=== PATIENT | female | born 1960 | race Caucasian/White ===

== ENCOUNTER 2019-03-04 17:19 | Inpatient (IN) | payer MEDICAID, OTHER ==
[~2019-03-04] VITALS: Ht 170.2 cm; Wt 108.8 kg
[2019-03-04] MEDS ORDERED: SODIUM CHLORIDE 0.9% 1,000ML IVBOLUS ONE (17:30)
[2019-03-04] MEDS ORDERED: SODIUM CHLORIDE FLUSH 10ML SYR IVF ONE (17:30)
[2019-03-04] MEDS ORDERED: PLEASE ENTER HEIGHT AND WEIGHT AND ALLERGIES MC SCH (18:00)
[2019-03-04 18:09] LABS: INTERNATIONAL NORMALIZED RATIO 1.49 (0.93-1.1); PROTHROMBIN TIME 15.9 Seconds (9.6-11.5)
[2019-03-04 18:12] LABS: ANION GAP 14 mmol/L (5-15); CALCIUM 8.1 mg/dL (8.5-10.1); CHLORIDE 104 mmol/L (98-107)
[2019-03-04 18:14] LABS: ALANINE AMINOTRANSFERASE 119 U/L (12-78); ALKALINE PHOSPHATASE 87 U/L (45-117); BILIRUBIN,TOTAL 1.6 mg/dL (0.2-1.0); CREATINE KINASE, TOTAL 45 U/L (26-192); SALICYLATE LEVEL < 1.7 mg/dL (2.8-20.0); T4 (THYROXINE) 4.9 mcg/dL (4.8-13.9); TOTAL PROTEIN 7.4 g/dL (6.4-8.2); TROPONIN I < 0.015 ng/mL (0.000-0.045)
[2019-03-04] MEDS: SODIUM CHLORIDE 0.9% 1,000 ML IV ONE ×2 (18:30→19:30)
--- NOTE | 2019-03-04 18:32 | NUR ---
Pt arrives via ems today from apartment complex s/p armaniign found wandering in complex and samarijudi called ems when she appeared to be confused and disoriented. Pt on arrival is only responisve to painful stimulus. Pt is a/ox1. Pt on arrival had two large bore pivs placed. Pts temp on arrival was 94.0 and warm fluids were started. Pt also has strong foul smell at this time. Pt has discolored feet and poor feet to hygiene. Pt does appear to not be taking care of herself. Pt also has purple bruising to nose. Pt is hypoxic on room air of 85%.
[2019-03-04 18:42] LABS: BASOPHILS # (AUTO) 0.03 x10^3/uL (0-0.1); BASOPHILS % (AUTO) 0 % (0-1); EOSINOPHILS # (AUTO) 0.02 x10^3/uL (0-0.4); EOSINOPHILS % (AUTO) 0 % (1-7); LYMPHOCYTES # (AUTO) 0.99 x10^3/uL (1-3.4); LYMPHOCYTES % (AUTO) 9 % (22-44); MD SCAN; MEAN CORPUSCULAR HGB CONC 31.5 g/dL (32.4-35.8); MEAN CORPUSCULAR VOLUME 92.1 fL (80-100); MEAN PLATELET VOLUME 9.9 fL (7.4-10.4); MONOCYTES # (AUTO) 0.27 x10^3/uL (0.2-0.8); MONOCYTES % (AUTO) 2 % (2-9); NEUTROPHILS # (AUTO) 9.87 x10^3/uL (1.8-6.8); NEUTROPHILS % (AUTO) 88 % (42-75); PLATELET COUNT 60 x10^3/uL (130-400); RED BLOOD COUNT 5.97 x10^6/uL (3.82-5.3); RED CELL DISTRIBUTION WIDTH 17.4 % (9.6-15.2)
--- NOTE | 2019-03-04 18:52 | NUR ---
PT to CT
--- NOTE | 2019-03-04 19:12 | NUR ---
pt back from ct.
--- NOTE | 2019-03-04 19:15 | NUR ---
RECEIVED REPORT FROM URBANO ACOSTA TO ASSUME CARE OF PT. AT APPROXIMATELY 1850. PT. WAS IN CT AT THAT TIME. PT. BACK TO ROOM NOW. ALL MONITORS REPLCAED. PT. ON JENIFER PAW WARMER GOWN. PT. HAS WARM FLUIDS INFUSING VIA HOTLINE. PT. RESTING ON GURNEY WITH SONOROUS REPIRATIONS. OXY MASK IN USE AT 8L WITH O2 SAT OF 98%. VS UPDATED. SITTER IN ROOM WITH PT. FOR SAFETY.
[2019-03-04] MEDS ORDERED: SODIUM CHLORIDE FLUSH 10ML SYR IVF PRN (19:30)
--- NOTE | 2019-03-04 19:32 | NUR ---
STRAIGHT CATH UA PERFORMED PER ORDER AND WALKED TO LAB. PT. REMAINS ON GURNEY WITH SONOROUS RESPIRATIONS. DID NOT WAKE FOR CAHT UA. FAMILY ARRIVED AT BS AT THIS TIME. URBANO RN AT BS OBTAINING INFO FROM FAMILY. THE REPORT "SHE IS A VERY PRIVATE PERSON AND SHE DOESN'T SHARE MUCH."
[2019-03-04] MEDS ORDERED: RIVA20TA PO (19:43)
[2019-03-04] MEDS ORDERED: TRAZ150T62 PO (19:43)
[2019-03-04] MEDS ORDERED: DULO30CA2 PO (19:43)
[2019-03-04 19:44] LABS: CULTURE INDICATED? YES; MICROSCOPIC INDICATED
[2019-03-04 19:58] LABS: AMPHETAMINE SCREEN, URINE Negative (Negative); BARBITURATE SCREEN, URINE Negative (Negative); BENZODIAZEPINE SCREEN, URINE Positive (Negative); CANNABINOID SCREEN, URINE Negative (Negative); COCAINE SCREEN, URINE Negative (Negative); METHADONE SCREEN, URINE Negative (Negative); OPIATE SCREEN, URINE Negative (Negative)
[2019-03-04] MEDS ORDERED: CEFTRIAXONE PMX 1GM/50ML 50 ML ONE (20:20)
[2019-03-04] MEDS ORDERED: CEFTRIAXONE PMX 1GM/50ML 50 ML IVPB ONE (20:30)
[2019-03-04] MEDS ORDERED: DIAZ10TA4 PO (20:43)
[2019-03-04] MEDS ORDERED: DIVA500T17 PO (20:43)
--- NOTE | 2019-03-04 21:31 | NUR ---
BRANT AT TO EVAL PT. FOR ADMISSION. SITTER REMAINS WITH PT. FAMILY REMAINS AT BS. PT. SLIGHTLY MORE ALERT NOW; WAKES, SITS UP, LOOKS AROUND, THEN GOES BACK TO SLEEP. NO DISTRESS NOTED.
[2019-03-04] MEDS ORDERED: LACTATED RINGERS 1,000 ML IV SCH (22:00)
[2019-03-04] MEDS ORDERED: PHARMACY MAY ADJ FOR RENAL FX MC PRN (22:00)
--- NOTE | 2019-03-04 22:09 | NUR ---
LAB AT FOR BLOOD DRAW. PT. CONDITION UNCHANGED. SITTER REMAINS IN ROOM ALONG WITH FAMILY. RIGHT AC 16G IV REMOVED NO LONGER FUNCTIONING; TIP INTACT. AWAITING CLEAN BED UPSTAIRS.
--- NOTE | 2019-03-04 22:26 | NUR ---
1ST ATTEMPT TO CALL REPORT TO FLOOR.
--- NOTE | 2019-03-04 22:31 | NUR ---
UNABLE TO GIVE REPORT.
--- NOTE | 2019-03-04 22:36 | NUR ---
LAB AT FOR FURTHER BLOOD DRAW ORDERS. FAMILY AND SITTTER AWARE OF NPO STATUS BUT MOUTH SWABS PROVIDED.
--- NOTE | 2019-03-04 22:38 | NUR ---
2ND ATTEMPT TO CALL REPORT TO FLOOR.
--- NOTE | 2019-03-04 22:59 | NUR ---
REPORT TO KARLA WALKER. FLOOR NOW READY FOR PT. TRANSPORT.
[2019-03-04 23:02] LABS: CREATINE KINASE, TOTAL 54 U/L (26-192); FREE T4 (FREE THYROXINE) 0.66 ng/dL (0.76-1.46); TROPONIN I 0.027 ng/mL (0.000-0.045)
[2019-03-04 23:35] VITALS: BP 137/87
[2019-03-05 00:59] VITALS: BP 139/90
[2019-03-05] MEDS ORDERED: CEFTRIAXONE PMX 1GM/50ML 50 ML IV ONE (02:30)
[2019-03-05 05:04] LABS: INTERNATIONAL NORMALIZED RATIO 1.51 (0.93-1.1); PROTHROMBIN TIME 16.1 Seconds (9.6-11.5)
[2019-03-05 05:07] LABS: MEAN CORPUSCULAR HEMOGLOBIN 28.8 pg (27.0-34.8); MEAN CORPUSCULAR HGB CONC 31.7 g/dL (32.4-35.8); MEAN CORPUSCULAR VOLUME 91.1 fL (80-100); MEAN PLATELET VOLUME 13.4 fL (7.4-10.4); PLATELET COUNT 82 x10^3/uL (130-400); RED BLOOD COUNT 5.58 x10^6/uL (3.82-5.3); RED CELL DISTRIBUTION WIDTH 17.5 % (9.6-15.2)
[2019-03-05 05:08] LABS: ALANINE AMINOTRANSFERASE 92 U/L (12-78); ALBUMIN 2.7 g/dL (3.4-5.0); ANION GAP 12 mmol/L (5-15); CALCIUM 8.3 mg/dL (8.5-10.1); CHLORIDE 109 mmol/L (98-107); CREATININE 1.39 mg/dL (0.55-1.02)
[2019-03-05 05:10] LABS: ALKALINE PHOSPHATASE 72 U/L (45-117); BILIRUBIN,TOTAL 1.2 mg/dL (0.2-1.0); TOTAL PROTEIN 6.7 g/dL (6.4-8.2)
[2019-03-05] MEDS: LEVOTHYROXINE 100 MCG INJ IVPush SCH ×2 (05:36→09:00)
[2019-03-05 05:59] LABS: BASOPHILS # (AUTO) 0.01 x10^3/uL (0-0.1); BASOPHILS % (AUTO) 0 % (0-1); EOSINOPHILS # (AUTO) 0.06 x10^3/uL (0-0.4); EOSINOPHILS % (AUTO) 1 % (1-7); LYMPHOCYTES # (AUTO) 1.09 x10^3/uL (1-3.4); LYMPHOCYTES % (AUTO) 8 % (22-44); MD SCAN; MONOCYTES # (AUTO) 1.13 x10^3/uL (0.2-0.8); MONOCYTES % (AUTO) 8 % (2-9); NEUTROPHILS # (AUTO) 11.46 x10^3/uL (1.8-6.8); NEUTROPHILS % (AUTO) 83 % (42-75)
[2019-03-05 06:58] VITALS: BP 163/113
[2019-03-05] MEDS: RIVAROXABAN 20 MG TABLET PO SCH (09:00)
[2019-03-05] MEDS: INSULIN LISPRO 100 UNITS/ML, PEN SQ-INSULIN SCH ×3 (10:53→21:00)
[2019-03-05] MEDS ORDERED: GADOTERATE 10 MMOL/20 ML SYR ONE (12:12)
[2019-03-05 13:22] VITALS: BP 157/94
[2019-03-05] MEDS ORDERED: DEXTROSE 50%, 50ML SYRINGE IVPush PRN ×2 (20:00)
[2019-03-05] MEDS ORDERED: GLUCAGON 1 MG IM PRN (20:00)
[2019-03-05] MEDS ORDERED: DEXTROSE 4 GM TAB.CHEW PO PRN (20:00)
[2019-03-05] MEDS: SODIUM CHLORIDE FLUSH 10ML SYR IVF SCH (20:56)
[2019-03-05] MEDS: CEFTRIAXONE PMX 2GM/50ML 50 ML IV SCH (20:56)
[2019-03-05 21:40] VITALS: BP 145/86
[2019-03-05] MEDS ORDERED: LACTATED RINGERS 1,000 ML IV SCH (22:00)
[2019-03-06 02:59] VITALS: BP 158/108
[2019-03-06] MEDS: hydrALAzine 20 MG/ML, 1ML IVPush PRN ×2 (03:37→20:11)
[2019-03-06 05:48] LABS: MEAN CORPUSCULAR HEMOGLOBIN 28.9 pg (27.0-34.8); MEAN CORPUSCULAR HGB CONC 31.2 g/dL (32.4-35.8); MEAN CORPUSCULAR VOLUME 92.5 fL (80-100); RED BLOOD COUNT 5.57 x10^6/uL (3.82-5.3); RED CELL DISTRIBUTION WIDTH 17.8 % (9.6-15.2)
[2019-03-06 05:52] LABS: CHLORIDE 113 mmol/L (98-107)
[2019-03-06 06:01] LABS: ALANINE AMINOTRANSFERASE 71 U/L (12-78); ALBUMIN 2.8 g/dL (3.4-5.0); ALKALINE PHOSPHATASE 72 U/L (45-117); ANION GAP 11 mmol/L (5-15); BILIRUBIN,TOTAL 0.9 mg/dL (0.2-1.0); CALCIUM 8.6 mg/dL (8.5-10.1); CREATININE 0.96 mg/dL (0.55-1.02); TOTAL PROTEIN 6.9 g/dL (6.4-8.2)
[2019-03-06 06:19] LABS: MEAN PLATELET VOLUME 13.2 fL (7.4-10.4); PLATELET COUNT 60 x10^3/uL (130-400)
[2019-03-06 06:20] LABS: BASOPHILS # (AUTO) 0.01 x10^3/uL (0-0.1); BASOPHILS % (AUTO) 0 % (0-1); EOSINOPHILS # (AUTO) 0.04 x10^3/uL (0-0.4); EOSINOPHILS % (AUTO) 0 % (1-7); LYMPHOCYTES # (AUTO) 0.79 x10^3/uL (1-3.4); LYMPHOCYTES % (AUTO) 5 % (22-44); MD SCAN; MONOCYTES # (AUTO) 1.18 x10^3/uL (0.2-0.8); MONOCYTES % (AUTO) 8 % (2-9); NEUTROPHILS # (AUTO) 13.01 x10^3/uL (1.8-6.8); NEUTROPHILS % (AUTO) 87 % (42-75)
[2019-03-06] MEDS: INSULIN LISPRO 100 UNITS/ML, PEN SQ-INSULIN SCH ×4 (07:00→19:13)
[2019-03-06 07:32] VITALS: BP 146/104
[2019-03-06] MEDS: CARVEDILOL 6.25 MG TABLET PO SCH ×2 (08:00→18:00)
[2019-03-06] MEDS: RIVAROXABAN 20 MG TABLET PO SCH (09:00)
[2019-03-06] MEDS: SODIUM CHLORIDE 0.9% 1,000 ML IV SCH (09:07)
[2019-03-06] MEDS: LEVOTHYROXINE 100 MCG INJ IVPush SCH (09:07)
[2019-03-06] MEDS: SODIUM CHLORIDE FLUSH 10ML SYR IVF SCH ×2 (09:08→21:00)
[2019-03-06 13:03] VITALS: BP 137/89
[2019-03-06 19:36] VITALS: BP 164/116
[2019-03-06] MEDS: CEFTRIAXONE PMX 2GM/50ML 50 ML IV SCH (20:11)
[2019-03-06 22:37] VITALS: BP 154/87
[2019-03-07 01:34] VITALS: BP 150/96
[2019-03-07] MEDS: SODIUM CHLORIDE 0.9% 1,000 ML IV SCH (02:15)
[2019-03-07] MEDS: CARVEDILOL 6.25 MG TABLET PO SCH ×2 (03:40→17:37)
[2019-03-07 09:00] LABS: ANION GAP 11 mmol/L (5-15); CALCIUM 8.3 mg/dL (8.5-10.1); CHLORIDE 117 mmol/L (98-107); CREATININE 0.87 mg/dL (0.55-1.02)
[2019-03-07 09:16] LABS: BASOPHILS % (AUTO) 0 % (0-1); EOSINOPHILS % (AUTO) 0 % (1-7); LYMPHOCYTES # (AUTO) 0.69 x10^3/uL (1-3.4); LYMPHOCYTES % (AUTO) 6 % (22-44); MD SCAN; MEAN CORPUSCULAR HEMOGLOBIN 29.6 pg (27.0-34.8); MEAN CORPUSCULAR HGB CONC 31.7 g/dL (32.4-35.8); MEAN CORPUSCULAR VOLUME 93.3 fL (80-100); MEAN PLATELET VOLUME 12.9 fL (7.4-10.4); MONOCYTES # (AUTO) 0.99 x10^3/uL (0.2-0.8); MONOCYTES % (AUTO) 8 % (2-9); NEUTROPHILS # (AUTO) 10.15 x10^3/uL (1.8-6.8); NEUTROPHILS % (AUTO) 86 % (42-75); PLATELET COUNT 73 x10^3/uL (130-400); RED BLOOD COUNT 5.34 x10^6/uL (3.82-5.3); RED CELL DISTRIBUTION WIDTH 17.8 % (9.6-15.2)
[2019-03-07] MEDS: SODIUM CHLORIDE FLUSH 10ML SYR IVF SCH ×2 (09:39→20:55)
[2019-03-07] MEDS: LEVOTHYROXINE 100 MCG INJ IVPush SCH (09:39)
[2019-03-07 09:42] VITALS: BP 142/99
[2019-03-07 14:02] VITALS: BP 136/97
[2019-03-07] MEDS: POTASSIUM CHLORIDE 20 MEQ in SODIUM CHLORIDE 0.45% 1,000 ML IV SCH (15:24)
[2019-03-07 19:36] VITALS: BP 137/85
[2019-03-07] MEDS: RIVAROXABAN 20 MG TABLET PO SCH (20:54)
[2019-03-07] MEDS: CEFTRIAXONE PMX 2GM/50ML 50 ML IV SCH (20:54)
[2019-03-07] MEDS: INSULIN LISPRO 100 UNITS/ML, PEN SQ-INSULIN SCH (20:55)
[2019-03-08 01:37] VITALS: BP 140/85
[2019-03-08 05:36] VITALS: BP 118/88
[2019-03-08] MEDS: CARVEDILOL 6.25 MG TABLET PO SCH ×2 (05:38→17:18)
[2019-03-08 06:58] VITALS: BP 117/81
[2019-03-08] MEDS: INSULIN LISPRO 100 UNITS/ML, PEN SQ-INSULIN SCH ×4 (07:00→20:58)
[2019-03-08] MEDS: SODIUM CHLORIDE FLUSH 10ML SYR IVF SCH ×2 (09:00→20:57)
[2019-03-08 09:13] LABS: ANION GAP 10 mmol/L (5-15); CALCIUM 7.9 mg/dL (8.5-10.1); CHLORIDE 106 mmol/L (98-107); CREATININE 0.78 mg/dL (0.55-1.02)
[2019-03-08 09:45] LABS: BASOPHILS # (AUTO) 0.06 x10^3/uL (0-0.1); BASOPHILS % (AUTO) 1 % (0-1); EOSINOPHILS % (AUTO) 1 % (1-7); LYMPHOCYTES # (AUTO) 1.18 x10^3/uL (1-3.4); LYMPHOCYTES % (AUTO) 10 % (22-44); MD SCAN; MEAN CORPUSCULAR HEMOGLOBIN 29.3 pg (27.0-34.8); MEAN CORPUSCULAR HGB CONC 31.7 g/dL (32.4-35.8); MEAN CORPUSCULAR VOLUME 92.5 fL (80-100); MEAN PLATELET VOLUME 12.8 fL (7.4-10.4); MONOCYTES # (AUTO) 1.09 x10^3/uL (0.2-0.8); MONOCYTES % (AUTO) 9 % (2-9); NEUTROPHILS # (AUTO) 9.25 x10^3/uL (1.8-6.8); NEUTROPHILS % (AUTO) 79 % (42-75); PLATELET COUNT 95 x10^3/uL (130-400); RED BLOOD COUNT 4.96 x10^6/uL (3.82-5.3); RED CELL DISTRIBUTION WIDTH 17.5 % (9.6-15.2)
[2019-03-08] MEDS: RIVAROXABAN 20 MG TABLET PO SCH (10:15)
[2019-03-08] MEDS: POTASSIUM CHLORIDE 20 MEQ in SODIUM CHLORIDE 0.45% 1,000 ML IV SCH (10:15)
[2019-03-08] MEDS: LEVOTHYROXINE 100 MCG INJ IVPush SCH (10:15)
[2019-03-08 13:53] VITALS: BP 117/82
[2019-03-08] MEDS ORDERED: ERGO500017 PO (15:13)
[2019-03-08] MEDS ORDERED: ARIP10TA15 PO (15:13)
[2019-03-08] MEDS ORDERED: LISI-420 PO (15:21)
[2019-03-08] MEDS ORDERED: AMOX875T PO (15:21)
[2019-03-08] MEDS ORDERED: BREX3TAB PO (15:21)
[2019-03-08] MEDS ORDERED: IBUP-1223 PO (15:21)
[2019-03-08] MEDS ORDERED: ATOR20TA86 PO (15:21)
[2019-03-08] MEDS ORDERED: METF500T17 PO (15:21)
[2019-03-08] MEDS: ERGOCALCIFEROL 50,000 UNIT CAPSULE PO SCH (17:17)
[2019-03-08 19:52] VITALS: BP 126/87
[2019-03-08] MEDS: CEFTRIAXONE PMX 2GM/50ML 50 ML IV SCH (20:56)
[2019-03-08] MEDS: ARIPIPRAZOLE 10 MG TABLET PO SCH (20:57)
[2019-03-08] MEDS: DULOXETINE 30 MG CAPSULE.DR PO SCH (20:57)
[2019-03-08] MEDS: DIVALPROEX 500 MG TAB.ER.24H PO SCH (20:57)
[2019-03-09 02:03] VITALS: BP 125/82
[2019-03-09 02:35] VITALS: BP 130/90
[2019-03-09] MEDS: CARVEDILOL 6.25 MG TABLET PO SCH ×2 (05:26→16:36)
[2019-03-09 07:36] VITALS: BP 141/82
[2019-03-09] MEDS: ATORVASTATIN 20 MG TABLET PO SCH (09:18)
[2019-03-09] MEDS: INSULIN LISPRO 100 UNITS/ML, PEN SQ-INSULIN SCH ×4 (09:18→20:37)
[2019-03-09] MEDS: SODIUM CHLORIDE FLUSH 10ML SYR IVF SCH ×2 (09:18→20:38)
[2019-03-09] MEDS: LISINOPRIL 20 MG TABLET PO SCH (09:19)
[2019-03-09] MEDS: LEVOTHYROXINE 100 MCG INJ IVPush SCH (09:19)
[2019-03-09] MEDS: RIVAROXABAN 20 MG TABLET PO SCH (09:19)
[2019-03-09] MEDS: POTASSIUM CHLORIDE 20 MEQ in SODIUM CHLORIDE 0.45% 1,000 ML IV SCH (12:18)
[2019-03-09 12:20] VITALS: BP 98/64
[2019-03-09 20:10] VITALS: BP 121/81
[2019-03-09] MEDS: DULOXETINE 30 MG CAPSULE.DR PO SCH (20:36)
[2019-03-09] MEDS: ARIPIPRAZOLE 10 MG TABLET PO SCH (20:37)
[2019-03-09] MEDS: DIVALPROEX 500 MG TAB.ER.24H PO SCH (20:37)
[2019-03-09] MEDS: CEFTRIAXONE PMX 2GM/50ML 50 ML IV SCH (20:37)
[2019-03-10 00:06] VITALS: BP 115/78
[2019-03-10] MEDS: CARVEDILOL 6.25 MG TABLET PO SCH ×2 (05:29→17:04)
[2019-03-10 06:48] VITALS: BP 116/83
[2019-03-10] MEDS: LISINOPRIL 20 MG TABLET PO SCH (09:14)
[2019-03-10] MEDS: ATORVASTATIN 20 MG TABLET PO SCH (09:14)
[2019-03-10] MEDS: INSULIN LISPRO 100 UNITS/ML, PEN SQ-INSULIN SCH ×4 (09:14→21:59)
[2019-03-10] MEDS: RIVAROXABAN 20 MG TABLET PO SCH (09:14)
[2019-03-10] MEDS: LEVOTHYROXINE 100 MCG INJ IVPush SCH (09:14)
[2019-03-10] MEDS: SODIUM CHLORIDE FLUSH 10ML SYR IVF SCH ×2 (09:15→21:00)
[2019-03-10 12:59] VITALS: BP 115/80
[2019-03-10] MEDS ORDERED: LORazepam 2 MG/ML, 1ML IVPush ONE (16:00)
[2019-03-10 19:17] VITALS: BP 121/80
[2019-03-10] MEDS: CEFTRIAXONE PMX 2GM/50ML 50 ML IV SCH (21:55)
[2019-03-10] MEDS: ARIPIPRAZOLE 10 MG TABLET PO SCH (22:14)
[2019-03-10] MEDS: DULOXETINE 30 MG CAPSULE.DR PO SCH (22:14)
[2019-03-10] MEDS: DIVALPROEX 500 MG TAB.ER.24H PO SCH (22:14)
[2019-03-11] VITALS (8 sets, daily range): BP systolic 111–159; BP diastolic 55–91
[2019-03-11] MEDS: CARVEDILOL 6.25 MG TABLET PO SCH ×2 (05:52→17:31)
[2019-03-11] MEDS: INSULIN LISPRO 100 UNITS/ML, PEN SQ-INSULIN SCH ×4 (08:04→19:55)
[2019-03-11] MEDS: ATORVASTATIN 20 MG TABLET PO SCH (08:06)
[2019-03-11] MEDS: LEVOTHYROXINE 100 MCG INJ IVPush SCH (08:06)
[2019-03-11] MEDS: LISINOPRIL 20 MG TABLET PO SCH (08:06)
[2019-03-11] MEDS: SODIUM CHLORIDE FLUSH 10ML SYR IVF SCH ×2 (08:06→19:48)
[2019-03-11] MEDS: RIVAROXABAN 20 MG TABLET PO SCH (08:06)
[2019-03-11] MEDS: DIVALPROEX 500 MG TAB.ER.24H PO SCH (19:48)
[2019-03-11] MEDS: DULOXETINE 30 MG CAPSULE.DR PO SCH (19:48)
[2019-03-11] MEDS: ARIPIPRAZOLE 10 MG TABLET PO SCH (19:48)
[2019-03-12 02:00] VITALS: BP 115/86
[2019-03-12 05:34] VITALS: BP 138/86
[2019-03-12] MEDS: CARVEDILOL 6.25 MG TABLET PO SCH ×2 (05:34→17:14)
[2019-03-12 06:48] LABS: BASOPHILS # (AUTO) 0.03 x10^3/uL (0-0.1); BASOPHILS % (AUTO) 0 % (0-1); EOSINOPHILS # (AUTO) 0.28 x10^3/uL (0-0.4); EOSINOPHILS % (AUTO) 3 % (1-7); LYMPHOCYTES # (AUTO) 1.38 x10^3/uL (1-3.4); LYMPHOCYTES % (AUTO) 16 % (22-44); MD NO; MEAN CORPUSCULAR HEMOGLOBIN 29.7 pg (27.0-34.8); MEAN CORPUSCULAR HGB CONC 32.1 g/dL (32.4-35.8); MEAN CORPUSCULAR VOLUME 92.5 fL (80-100); MEAN PLATELET VOLUME 10.6 fL (7.4-10.4); MONOCYTES # (AUTO) 1.01 x10^3/uL (0.2-0.8); MONOCYTES % (AUTO) 12 % (2-9); NEUTROPHILS # (AUTO) 6.02 x10^3/uL (1.8-6.8); NEUTROPHILS % (AUTO) 69 % (42-75); PLATELET COUNT 186 x10^3/uL (130-400); RED BLOOD COUNT 4.98 x10^6/uL (3.82-5.3); RED CELL DISTRIBUTION WIDTH 17.6 % (9.6-15.2)
[2019-03-12 06:57] LABS: ANION GAP 7 mmol/L (5-15); CALCIUM 8.6 mg/dL (8.5-10.1); CHLORIDE 106 mmol/L (98-107); CREATININE 0.64 mg/dL (0.55-1.02)
[2019-03-12 07:05] VITALS: BP 105/69
[2019-03-12] MEDS: INSULIN LISPRO 100 UNITS/ML, PEN SQ-INSULIN SCH ×4 (07:55→19:49)
[2019-03-12] MEDS: LEVOTHYROXINE 100 MCG INJ IVPush SCH (09:21)
[2019-03-12] MEDS: ATORVASTATIN 20 MG TABLET PO SCH (09:21)
[2019-03-12] MEDS: RIVAROXABAN 20 MG TABLET PO SCH (09:21)
[2019-03-12] MEDS: SODIUM CHLORIDE FLUSH 10ML SYR IVF SCH ×2 (09:21→19:53)
[2019-03-12] MEDS: LISINOPRIL 20 MG TABLET PO SCH (09:21)
[2019-03-12 12:55] VITALS: BP 102/69
[2019-03-12] MEDS: DIVALPROEX 500 MG TAB.ER.24H PO SCH (19:49)
[2019-03-12] MEDS: ARIPIPRAZOLE 10 MG TABLET PO SCH (19:49)
[2019-03-12] MEDS: DULOXETINE 30 MG CAPSULE.DR PO SCH (19:49)
[2019-03-12 20:58] VITALS: BP 126/81
[2019-03-13 01:39] VITALS: BP 121/77
[2019-03-13 05:12] VITALS: BP 119/84
[2019-03-13] MEDS: CARVEDILOL 6.25 MG TABLET PO SCH ×2 (05:16→17:02)
[2019-03-13 07:19] VITALS: BP 123/85
[2019-03-13] MEDS: SODIUM CHLORIDE FLUSH 10ML SYR IVF SCH ×2 (08:45→20:41)
[2019-03-13] MEDS: INSULIN LISPRO 100 UNITS/ML, PEN SQ-INSULIN SCH ×4 (08:45→20:40)
[2019-03-13] MEDS: LEVOTHYROXINE 100 MCG INJ IVPush SCH (08:45)
[2019-03-13] MEDS: ATORVASTATIN 20 MG TABLET PO SCH (08:49)
[2019-03-13] MEDS: RIVAROXABAN 20 MG TABLET PO SCH (08:49)
[2019-03-13] MEDS: LISINOPRIL 20 MG TABLET PO SCH (08:49)
[2019-03-13 13:11] VITALS: BP 111/79
[2019-03-13] MEDS: DIVALPROEX 500 MG TAB.ER.24H PO SCH (20:41)
[2019-03-13] MEDS: DULOXETINE 30 MG CAPSULE.DR PO SCH (20:41)
[2019-03-13] MEDS: ARIPIPRAZOLE 10 MG TABLET PO SCH (20:41)
[2019-03-13 21:17] VITALS: BP 143/77
[2019-03-14 00:55] VITALS: BP 128/76
[2019-03-14] MEDS: CARVEDILOL 6.25 MG TABLET PO SCH ×2 (05:38→17:11)
[2019-03-14 08:36] VITALS: BP 108/74
[2019-03-14] MEDS: LEVOTHYROXINE 100 MCG INJ IVPush SCH (10:22)
[2019-03-14] MEDS: SODIUM CHLORIDE FLUSH 10ML SYR IVF SCH ×2 (10:22→20:19)
[2019-03-14] MEDS: RIVAROXABAN 20 MG TABLET PO SCH (10:24)
[2019-03-14] MEDS: LISINOPRIL 20 MG TABLET PO SCH (10:24)
[2019-03-14] MEDS: ATORVASTATIN 20 MG TABLET PO SCH (10:24)
[2019-03-14] MEDS: INSULIN LISPRO 100 UNITS/ML, PEN SQ-INSULIN SCH ×4 (10:25→20:15)
[2019-03-14 14:16] VITALS: BP 127/78
[2019-03-14 20:10] VITALS: BP 110/74
[2019-03-14] MEDS: DIVALPROEX 500 MG TAB.ER.24H PO SCH (20:16)
[2019-03-14] MEDS: DULOXETINE 30 MG CAPSULE.DR PO SCH (20:16)
[2019-03-14] MEDS: ARIPIPRAZOLE 10 MG TABLET PO SCH (20:16)
[2019-03-15 00:07] VITALS: BP 121/82
[2019-03-15] MEDS: CARVEDILOL 6.25 MG TABLET PO SCH ×2 (06:01→17:36)
[2019-03-15 08:37] VITALS: BP 101/69
[2019-03-15] MEDS: RIVAROXABAN 20 MG TABLET PO SCH (09:32)
[2019-03-15] MEDS: ATORVASTATIN 20 MG TABLET PO SCH (09:32)
[2019-03-15] MEDS: INSULIN LISPRO 100 UNITS/ML, PEN SQ-INSULIN SCH ×4 (09:33→20:39)
[2019-03-15] MEDS: LISINOPRIL 20 MG TABLET PO SCH (09:33)
[2019-03-15] MEDS: SODIUM CHLORIDE FLUSH 10ML SYR IVF SCH ×2 (09:33→20:40)
[2019-03-15] MEDS: LEVOTHYROXINE 100 MCG INJ IVPush SCH (09:33)
[2019-03-15 12:47] VITALS: BP 127/80
[2019-03-15 14:28] LABS: BASOPHILS # (AUTO) 0.07 x10^3/uL (0-0.1); BASOPHILS % (AUTO) 1 % (0-1); EOSINOPHILS # (AUTO) 0.16 x10^3/uL (0-0.4); EOSINOPHILS % (AUTO) 2 % (1-7); LYMPHOCYTES # (AUTO) 2.02 x10^3/uL (1-3.4); LYMPHOCYTES % (AUTO) 27 % (22-44); MD NO; MEAN CORPUSCULAR HEMOGLOBIN 28.9 pg (27.0-34.8); MEAN CORPUSCULAR HGB CONC 31.7 g/dL (32.4-35.8); MEAN CORPUSCULAR VOLUME 91.2 fL (80-100); MEAN PLATELET VOLUME 10.7 fL (7.4-10.4); MONOCYTES % (AUTO) 7 % (2-9); NEUTROPHILS # (AUTO) 4.68 x10^3/uL (1.8-6.8); NEUTROPHILS % (AUTO) 63 % (42-75); PLATELET COUNT 226 x10^3/uL (130-400); RED BLOOD COUNT 4.67 x10^6/uL (3.82-5.3); RED CELL DISTRIBUTION WIDTH 17.3 % (9.6-15.2)
[2019-03-15 14:29] LABS: ALBUMIN 1.8 g/dL (3.4-5.0); ANION GAP 5 mmol/L (5-15); CALCIUM 8.5 mg/dL (8.5-10.1); CHLORIDE 104 mmol/L (98-107); CREATININE 0.82 mg/dL (0.55-1.02)
[2019-03-15] MEDS: ERGOCALCIFEROL 50,000 UNIT CAPSULE PO SCH (17:36)
[2019-03-15 19:54] VITALS: BP 128/83
[2019-03-15] MEDS: DULOXETINE 30 MG CAPSULE.DR PO SCH (20:37)
[2019-03-15] MEDS: ARIPIPRAZOLE 10 MG TABLET PO SCH (20:37)
[2019-03-15] MEDS: DIVALPROEX 500 MG TAB.ER.24H PO SCH (20:37)
[2019-03-16 02:03] VITALS: BP 131/84
[2019-03-16] MEDS: CARVEDILOL 6.25 MG TABLET PO SCH ×2 (06:00→17:07)
[2019-03-16] MEDS: INSULIN LISPRO 100 UNITS/ML, PEN SQ-INSULIN SCH ×4 (07:00→20:14)
[2019-03-16 08:01] LABS: BASOPHILS # (AUTO) 0.06 x10^3/uL (0-0.1); BASOPHILS % (AUTO) 1 % (0-1); EOSINOPHILS # (AUTO) 0.12 x10^3/uL (0-0.4); EOSINOPHILS % (AUTO) 2 % (1-7); LYMPHOCYTES # (AUTO) 1.91 x10^3/uL (1-3.4); LYMPHOCYTES % (AUTO) 28 % (22-44); MD NO; MEAN CORPUSCULAR HEMOGLOBIN 29.2 pg (27.0-34.8); MEAN CORPUSCULAR VOLUME 91.3 fL (80-100); MEAN PLATELET VOLUME 9.8 fL (7.4-10.4); MONOCYTES # (AUTO) 0.43 x10^3/uL (0.2-0.8); MONOCYTES % (AUTO) 6 % (2-9); NEUTROPHILS # (AUTO) 4.32 x10^3/uL (1.8-6.8); NEUTROPHILS % (AUTO) 63 % (42-75); PLATELET COUNT 236 x10^3/uL (130-400); RED BLOOD COUNT 4.54 x10^6/uL (3.82-5.3); RED CELL DISTRIBUTION WIDTH 17.6 % (9.6-15.2)
[2019-03-16 08:13] VITALS: BP 118/76
[2019-03-16 08:13] LABS: ALBUMIN 1.9 g/dL (3.4-5.0); ANION GAP 5 mmol/L (5-15); CALCIUM 8.2 mg/dL (8.5-10.1); CHLORIDE 104 mmol/L (98-107)
[2019-03-16] MEDS: LEVOTHYROXINE 100 MCG INJ IVPush SCH (08:23)
[2019-03-16] MEDS: RIVAROXABAN 20 MG TABLET PO SCH (08:24)
[2019-03-16] MEDS: ATORVASTATIN 20 MG TABLET PO SCH (08:24)
[2019-03-16] MEDS: LISINOPRIL 20 MG TABLET PO SCH (08:24)
[2019-03-16] MEDS ORDERED: MAGNESIUM SULFATE PMX 2GM/50ML 50 ML IV ONE (08:30)
[2019-03-16] MEDS: SODIUM CHLORIDE FLUSH 10ML SYR IVF SCH ×2 (09:23→21:00)
[2019-03-16 11:33] LABS: MICROSCOPIC AUTO
[2019-03-16 11:35] LABS: CULTURE INDICATED? YES
[2019-03-16 12:59] VITALS: BP 131/90
[2019-03-16] MEDS: LEVOFLOXACIN/PMX 500MG/100ML 100 ML IV SCH (17:07)
[2019-03-16 20:00] VITALS: BP 102/70
[2019-03-16] MEDS: DULOXETINE 30 MG CAPSULE.DR PO SCH (20:14)
[2019-03-16] MEDS: ARIPIPRAZOLE 10 MG TABLET PO SCH (20:15)
[2019-03-16] MEDS: DIVALPROEX 500 MG TAB.ER.24H PO SCH (20:15)
[2019-03-17 00:51] VITALS: BP 113/79
[2019-03-17] MEDS: CARVEDILOL 6.25 MG TABLET PO SCH ×2 (05:46→17:59)
[2019-03-17 07:17] VITALS: BP 142/87
[2019-03-17] MEDS: INSULIN LISPRO 100 UNITS/ML, PEN SQ-INSULIN SCH ×4 (08:18→20:46)
[2019-03-17] MEDS: ATORVASTATIN 20 MG TABLET PO SCH (10:50)
[2019-03-17] MEDS: SODIUM CHLORIDE FLUSH 10ML SYR IVF SCH ×2 (10:50→20:42)
[2019-03-17] MEDS: LISINOPRIL 20 MG TABLET PO SCH (10:50)
[2019-03-17] MEDS: RIVAROXABAN 20 MG TABLET PO SCH (10:50)
[2019-03-17] MEDS: LEVOTHYROXINE 100 MCG INJ IVPush SCH (10:50)
[2019-03-17 13:11] VITALS: BP 111/70
[2019-03-17] MEDS: LEVOFLOXACIN/PMX 500MG/100ML 100 ML IV SCH (17:59)
[2019-03-17 19:00] VITALS: BP 129/78
[2019-03-17] MEDS: ARIPIPRAZOLE 10 MG TABLET PO SCH (20:36)
[2019-03-17] MEDS: DULOXETINE 30 MG CAPSULE.DR PO SCH (20:37)
[2019-03-17] MEDS: DIVALPROEX 500 MG TAB.ER.24H PO SCH (20:37)
[2019-03-18 00:55] VITALS: BP 110/74
[2019-03-18] MEDS: CARVEDILOL 6.25 MG TABLET PO SCH ×2 (05:53→17:41)
[2019-03-18 06:48] VITALS: BP 112/71
[2019-03-18] MEDS: RIVAROXABAN 20 MG TABLET PO SCH (07:53)
[2019-03-18] MEDS: LEVOTHYROXINE 100 MCG INJ IVPush SCH (07:53)
[2019-03-18] MEDS: SODIUM CHLORIDE FLUSH 10ML SYR IVF SCH ×2 (07:53→20:52)
[2019-03-18] MEDS: ATORVASTATIN 20 MG TABLET PO SCH (07:53)
[2019-03-18] MEDS: LISINOPRIL 20 MG TABLET PO SCH (07:53)
[2019-03-18] MEDS: INSULIN LISPRO 100 UNITS/ML, PEN SQ-INSULIN SCH ×4 (07:54→21:12)
[2019-03-18 07:55] VITALS: BP 124/69
[2019-03-18] MEDS ORDERED: LEVO100T PO (09:15)
[2019-03-18 12:43] VITALS: BP 118/75
[2019-03-18 18:49] VITALS: BP 137/84
[2019-03-18] MEDS: ARIPIPRAZOLE 10 MG TABLET PO SCH (20:40)
[2019-03-18] MEDS: DULOXETINE 30 MG CAPSULE.DR PO SCH (20:40)
[2019-03-18] MEDS: DIVALPROEX 500 MG TAB.ER.24H PO SCH (20:41)
[2019-03-18] MEDS: LEVOFLOXACIN/PMX 500MG/100ML 100 ML IV SCH (20:41)
[2019-03-19 00:19] VITALS: BP 117/81
[2019-03-19] MEDS: CARVEDILOL 6.25 MG TABLET PO SCH ×2 (06:03→18:21)
[2019-03-19] MEDS: LISINOPRIL 20 MG TABLET PO SCH (07:37)
[2019-03-19] MEDS: RIVAROXABAN 20 MG TABLET PO SCH (07:38)
[2019-03-19] MEDS: ATORVASTATIN 20 MG TABLET PO SCH (07:38)
[2019-03-19] MEDS: LEVOTHYROXINE 100 MCG INJ IVPush SCH (07:38)
[2019-03-19] MEDS: SODIUM CHLORIDE FLUSH 10ML SYR IVF SCH ×2 (07:43→20:27)
[2019-03-19] MEDS: INSULIN LISPRO 100 UNITS/ML, PEN SQ-INSULIN SCH ×4 (07:43→20:25)
[2019-03-19 08:05] VITALS: BP 124/87
[2019-03-19] MEDS: AMOXICILLIN 500 MG CAPSULE PO SCH ×3 (09:48→20:26)
[2019-03-19] MEDS: FLUCONAZOLE 200 MG TABLET PO SCH (09:49)
[2019-03-19 14:26] VITALS: BP 115/77
[2019-03-19 18:48] VITALS: BP 124/79
[2019-03-19] MEDS: ARIPIPRAZOLE 10 MG TABLET PO SCH (20:26)
[2019-03-19] MEDS: DULOXETINE 30 MG CAPSULE.DR PO SCH (20:26)
[2019-03-19] MEDS: DIVALPROEX 500 MG TAB.ER.24H PO SCH (20:26)
[2019-03-20 01:13] VITALS: BP 113/78
[2019-03-20 06:06] VITALS: BP 133/88
[2019-03-20] MEDS: CARVEDILOL 6.25 MG TABLET PO SCH ×2 (06:06→16:56)
[2019-03-20] MEDS: INSULIN LISPRO 100 UNITS/ML, PEN SQ-INSULIN SCH ×4 (07:48→20:03)
[2019-03-20] MEDS: SODIUM CHLORIDE FLUSH 10ML SYR IVF SCH ×2 (07:48→20:05)
[2019-03-20] MEDS: LEVOTHYROXINE 100 MCG INJ IVPush SCH (07:49)
[2019-03-20] MEDS: AMOXICILLIN 500 MG CAPSULE PO SCH ×3 (07:49→20:02)
[2019-03-20] MEDS: RIVAROXABAN 20 MG TABLET PO SCH (07:49)
[2019-03-20] MEDS: FLUCONAZOLE 200 MG TABLET PO SCH (07:49)
[2019-03-20] MEDS: LISINOPRIL 20 MG TABLET PO SCH (07:49)
[2019-03-20] MEDS: ATORVASTATIN 20 MG TABLET PO SCH (07:50)
[2019-03-20 16:30] VITALS: BP 130/84
[2019-03-20 19:37] VITALS: BP 128/82
[2019-03-20] MEDS: DULOXETINE 30 MG CAPSULE.DR PO SCH (20:02)
[2019-03-20] MEDS: ARIPIPRAZOLE 10 MG TABLET PO SCH (20:02)
[2019-03-20] MEDS: DIVALPROEX 500 MG TAB.ER.24H PO SCH (20:02)
[2019-03-21 00:48] VITALS: BP 143/79
[2019-03-21] MEDS: CARVEDILOL 6.25 MG TABLET PO SCH ×2 (05:22→16:36)
[2019-03-21 08:13] VITALS: BP 123/80
[2019-03-21] MEDS: INSULIN LISPRO 100 UNITS/ML, PEN SQ-INSULIN SCH ×4 (08:13→20:13)
[2019-03-21] MEDS: SODIUM CHLORIDE FLUSH 10ML SYR IVF SCH ×2 (08:13→20:12)
[2019-03-21] MEDS: AMOXICILLIN 500 MG CAPSULE PO SCH ×3 (08:18→20:13)
[2019-03-21] MEDS: FLUCONAZOLE 200 MG TABLET PO SCH (08:18)
[2019-03-21] MEDS: ATORVASTATIN 20 MG TABLET PO SCH (08:18)
[2019-03-21] MEDS: LEVOTHYROXINE 100 MCG INJ IVPush SCH ×2 (08:18→13:53)
[2019-03-21] MEDS: RIVAROXABAN 20 MG TABLET PO SCH (08:18)
[2019-03-21] MEDS: LISINOPRIL 20 MG TABLET PO SCH (08:19)
[2019-03-21 13:59] VITALS: BP 125/79
[2019-03-21 16:34] VITALS: BP 125/83
[2019-03-21] MEDS: DIVALPROEX 500 MG TAB.ER.24H PO SCH (20:13)
[2019-03-21] MEDS: ARIPIPRAZOLE 10 MG TABLET PO SCH (20:13)
[2019-03-21] MEDS: DULOXETINE 30 MG CAPSULE.DR PO SCH (20:13)
[2019-03-21 20:36] VITALS: BP 121/70
[2019-03-22 00:45] VITALS: BP 111/76
[2019-03-22] MEDS: CARVEDILOL 6.25 MG TABLET PO SCH ×2 (05:28→17:04)
[2019-03-22 07:32] VITALS: BP 113/76
[2019-03-22] MEDS: RIVAROXABAN 20 MG TABLET PO SCH (07:40)
[2019-03-22] MEDS: LEVOTHYROXINE 100 MCG INJ IVPush SCH (07:40)
[2019-03-22] MEDS: LISINOPRIL 20 MG TABLET PO SCH (07:40)
[2019-03-22] MEDS: INSULIN LISPRO 100 UNITS/ML, PEN SQ-INSULIN SCH ×4 (07:41→20:15)
[2019-03-22] MEDS: ATORVASTATIN 20 MG TABLET PO SCH (07:42)
[2019-03-22] MEDS: SODIUM CHLORIDE FLUSH 10ML SYR IVF SCH ×2 (07:43→20:30)
[2019-03-22] MEDS: FLUCONAZOLE 200 MG TABLET PO SCH (07:44)
[2019-03-22 12:28] VITALS: BP 119/82
[2019-03-22] MEDS: ERGOCALCIFEROL 50,000 UNIT CAPSULE PO SCH (17:04)
[2019-03-22 19:29] VITALS: BP 155/83
[2019-03-22] MEDS: DIVALPROEX 500 MG TAB.ER.24H PO SCH (20:29)
[2019-03-22] MEDS: ARIPIPRAZOLE 10 MG TABLET PO SCH (20:29)
[2019-03-22] MEDS: DULOXETINE 30 MG CAPSULE.DR PO SCH (20:30)
[2019-03-23 01:35] VITALS: BP 119/78
[2019-03-23 06:14] VITALS: BP 132/85
[2019-03-23] MEDS: CARVEDILOL 6.25 MG TABLET PO SCH ×2 (06:15→16:46)
[2019-03-23 07:35] VITALS: BP 127/81
[2019-03-23] MEDS: ATORVASTATIN 20 MG TABLET PO SCH (07:46)
[2019-03-23] MEDS: RIVAROXABAN 20 MG TABLET PO SCH (07:46)
[2019-03-23] MEDS: LISINOPRIL 20 MG TABLET PO SCH (07:47)
[2019-03-23] MEDS: SODIUM CHLORIDE FLUSH 10ML SYR IVF SCH ×2 (07:47→20:43)
[2019-03-23] MEDS: FLUCONAZOLE 200 MG TABLET PO SCH (07:47)
[2019-03-23] MEDS: LEVOTHYROXINE 100 MCG INJ IVPush SCH (07:52)
[2019-03-23] MEDS: INSULIN LISPRO 100 UNITS/ML, PEN SQ-INSULIN SCH ×4 (07:52→20:43)
[2019-03-23 13:14] VITALS: BP 143/84
[2019-03-23] MEDS: metFORMIN 850 MG TABLET PO SCH (16:46)
[2019-03-23 19:29] VITALS: BP 155/88
[2019-03-23] MEDS: DULOXETINE 30 MG CAPSULE.DR PO SCH (20:42)
[2019-03-23] MEDS: ARIPIPRAZOLE 10 MG TABLET PO SCH (20:42)
[2019-03-23] MEDS: DIVALPROEX 500 MG TAB.ER.24H PO SCH (20:42)
[2019-03-24 00:17] VITALS: BP 109/71
[2019-03-24] MEDS: CARVEDILOL 6.25 MG TABLET PO SCH ×2 (05:22→16:42)
[2019-03-24 05:23] VITALS: BP 161/87
[2019-03-24 06:05] LABS: CREATININE 0.78 mg/dL (0.55-1.02)
[2019-03-24] MEDS: metFORMIN 850 MG TABLET PO SCH ×2 (07:42→16:42)
[2019-03-24] MEDS: LISINOPRIL 20 MG TABLET PO SCH (07:42)
[2019-03-24] MEDS: RIVAROXABAN 20 MG TABLET PO SCH (07:42)
[2019-03-24] MEDS: LEVOTHYROXINE 100 MCG INJ IVPush SCH (07:42)
[2019-03-24] MEDS: ATORVASTATIN 20 MG TABLET PO SCH (07:42)
[2019-03-24 07:43] VITALS: BP 134/82
[2019-03-24] MEDS: SODIUM CHLORIDE FLUSH 10ML SYR IVF SCH (07:43)
[2019-03-24] MEDS: INSULIN LISPRO 100 UNITS/ML, PEN SQ-INSULIN SCH ×4 (08:04→19:57)
[2019-03-24] MEDS: LEVOTHYROXINE 125 MCG TABLET PO SCH (11:31)
[2019-03-24 14:19] VITALS: BP 128/82
[2019-03-24] MEDS: DULOXETINE 30 MG CAPSULE.DR PO SCH (19:56)
[2019-03-24] MEDS: ARIPIPRAZOLE 10 MG TABLET PO SCH (19:57)
[2019-03-24] MEDS: DIVALPROEX 500 MG TAB.ER.24H PO SCH (19:57)
[2019-03-24 20:05] VITALS: BP 117/81
[2019-03-25 02:46] VITALS: BP 126/81
[2019-03-25 06:06] VITALS: BP 142/87
[2019-03-25] MEDS: CARVEDILOL 6.25 MG TABLET PO SCH ×2 (06:06→18:30)
[2019-03-25] MEDS: LEVOTHYROXINE 125 MCG TABLET PO SCH (06:06)
[2019-03-25] MEDS: INSULIN LISPRO 100 UNITS/ML, PEN SQ-INSULIN SCH ×4 (07:41→20:30)
[2019-03-25 08:29] VITALS: BP 171/86
[2019-03-25] MEDS: LISINOPRIL 20 MG TABLET PO SCH (09:48)
[2019-03-25] MEDS: metFORMIN 850 MG TABLET PO SCH ×2 (09:48→17:19)
[2019-03-25] MEDS: ATORVASTATIN 20 MG TABLET PO SCH (09:48)
[2019-03-25] MEDS: RIVAROXABAN 20 MG TABLET PO SCH (09:48)
[2019-03-25 14:19] VITALS: BP 155/85
[2019-03-25 18:54] VITALS: BP 163/102
[2019-03-25 19:49] VITALS: BP 154/78
[2019-03-25] MEDS: DIVALPROEX 500 MG TAB.ER.24H PO SCH (20:30)
[2019-03-25] MEDS: ARIPIPRAZOLE 10 MG TABLET PO SCH (20:30)
[2019-03-25] MEDS: DULOXETINE 30 MG CAPSULE.DR PO SCH (20:30)
[2019-03-26 00:31] VITALS: BP 121/80
[2019-03-26 04:57] VITALS: BP 155/90
[2019-03-26] MEDS: LEVOTHYROXINE 125 MCG TABLET PO SCH (05:01)
[2019-03-26] MEDS: CARVEDILOL 6.25 MG TABLET PO SCH ×2 (05:01→17:11)
[2019-03-26 06:58] VITALS: BP 162/84
[2019-03-26] MEDS: INSULIN LISPRO 100 UNITS/ML, PEN SQ-INSULIN SCH ×4 (07:38→21:35)
[2019-03-26] MEDS: LISINOPRIL 20 MG TABLET PO SCH (07:39)
[2019-03-26] MEDS: RIVAROXABAN 20 MG TABLET PO SCH (07:39)
[2019-03-26] MEDS: metFORMIN 850 MG TABLET PO SCH ×2 (07:39→17:10)
[2019-03-26] MEDS: ATORVASTATIN 20 MG TABLET PO SCH (07:39)
[2019-03-26 12:24] VITALS: BP 179/97
[2019-03-26 13:15] VITALS: BP 160/90
[2019-03-26 19:59] VITALS: BP 134/84
[2019-03-26] MEDS: DIVALPROEX 500 MG TAB.ER.24H PO SCH (21:34)
[2019-03-26] MEDS: DULOXETINE 30 MG CAPSULE.DR PO SCH (21:34)
[2019-03-26] MEDS: ARIPIPRAZOLE 10 MG TABLET PO SCH (21:34)
[2019-03-27 00:40] VITALS: BP 163/84
[2019-03-27] MEDS: LEVOTHYROXINE 125 MCG TABLET PO SCH (05:17)
[2019-03-27] MEDS: CARVEDILOL 6.25 MG TABLET PO SCH (05:18)
[2019-03-27 07:52] VITALS: BP 116/76
[2019-03-27] MEDS: ATORVASTATIN 20 MG TABLET PO SCH (08:09)
[2019-03-27] MEDS: metFORMIN 850 MG TABLET PO SCH ×3 (08:09→17:18)
[2019-03-27] MEDS: INSULIN LISPRO 100 UNITS/ML, PEN SQ-INSULIN SCH ×3 (08:09→16:00)
[2019-03-27] MEDS: LISINOPRIL 20 MG TABLET PO SCH (08:10)
[2019-03-27] MEDS: RIVAROXABAN 20 MG TABLET PO SCH (08:10)
[2019-03-27] MEDS ORDERED: METF850T PO (09:42)
[2019-03-27] MEDS ORDERED: CARV12.52 PO (09:42)
[2019-03-27 13:07] VITALS: BP 145/84
[2019-03-27] MEDS ORDERED: CARVEDILOL 12.5 MG TABLET PO SCH (18:00)
== END 2019-03-27 19:00 | DRG 871 ==
LOC: ED 19:40 → EDIP 19:47 → 4WST 23:14 → 3N 03-18 15:57
PROVIDERS: ADMIT Family Medicine; ATTEND Internal Medicine
PROC: 0T9B70Z Drainage of Bladder with Drainage Device, Via Natural or Artificial Opening (ICD-10-PCS; principal; 2019-03-04)
DX: A41.9 Sepsis, unspecified organism (principal); G93.41 Metabolic encephalopathy; J96.01 Acute respiratory failure with hypoxia; N17.0 Acute kidney failure with tubular necrosis; D68.9 Coagulation defect, unspecified; E87.0 Hyperosmolality and hypernatremia; E87.2 Acidosis; I31.3 Pericardial effusion (noninflammatory); J98.11 Atelectasis; N39.0 Urinary tract infection, site not specified; B96.1 Klebsiella pneumoniae [K. pneumoniae] as the cause of diseases classified elsewhere; D69.6 Thrombocytopenia, unspecified; E03.9 Hypothyroidism, unspecified; E11.65 Type 2 diabetes mellitus with hyperglycemia; T68.XXXA Hypothermia, initial encounter; E66.01 Morbid (severe) obesity due to excess calories; Z68.37 Body mass index [BMI] 37.0-37.9, adult; E86.0 Dehydration; F32.9 Major depressive disorder, single episode, unspecified; I10 Essential (primary) hypertension; L98.9 Disorder of the skin and subcutaneous tissue, unspecified; Z82.49 Family history of ischemic heart disease and other diseases of the circulatory system; Z86.711 Personal history of pulmonary embolism; Z86.718 Personal history of other venous thrombosis and embolism; Z90.710 Acquired absence of both cervix and uterus; X31.XXXA Exposure to excessive natural cold, initial encounter; Y93.89 Activity, other specified; Y92.89 Other specified places as the place of occurrence of the external cause; Y99.8 Other external cause status; Z88.2 Allergy status to sulfonamides; Z79.84 Long term (current) use of oral hypoglycemic drugs
CPT/HCPCS: 36415; 36600; 70450; 70553; 71045; 76700; 80048; 80053; 80069; 80074; 80164; 80307; 81001; 82140; 82436; 82533; 82550; 82565; 82570; 82607; 82803; 82947; 82962; 83036; 83605; 83735; 83880; 84100; 84133; 84145; 84300; 84436; 84439; 84443; 84481; 84484; 85025; 85520; 85610; 85730; 87040; 87077; 87086; 87106; 87186; 93005; 93306; 96365; G0378; J0696; J1956; J3480; 92522-GN; A9575; J0360; J1815; J2060; J3475; J7030; J7120

== ENCOUNTER 2019-03-27 21:32 | Observation (INO) | payer MEDICAID ==
[~2019-03-27] VITALS: Ht 170.2 cm; Wt 99.7 kg
[~2019-03-27 21:32] MED LIST: AMOX875T PO; ARIP10TA15 PO; ATOR20TA86 PO; BREX3TAB PO; CARV12.52 PO; DIAZ10TA4 PO; DIVA500T17 PO; DULO30CA2 PO; ERGO500017 PO; IBUP-1223 PO; LEVO100T PO; LISI-420 PO; METF500T17 PO; METF850T PO; RIVA20TA PO; TRAZ150T62 PO
[2019-03-27 23:13] LABS: ANION GAP 5 mmol/L (5-15); CALCIUM 9.2 mg/dL (8.5-10.1); CHLORIDE 103 mmol/L (98-107); CREATININE 1.19 mg/dL (0.55-1.02)
[2019-03-27 23:15] LABS: MEAN CORPUSCULAR HEMOGLOBIN 29.3 pg (27.0-34.8); MEAN CORPUSCULAR HGB CONC 32.5 g/dL (32.4-35.8); MEAN CORPUSCULAR VOLUME 90.1 fL (80-100); MEAN PLATELET VOLUME 11.4 fL (7.4-10.4); PLATELET COUNT 213 x10^3/uL (130-400); RED BLOOD COUNT 4.86 x10^6/uL (3.82-5.3); RED CELL DISTRIBUTION WIDTH 16.5 % (9.6-15.2)
[2019-03-27 23:54] LABS: BASOPHILS # (AUTO) 0.16 x10^3/uL (0-0.1); BASOPHILS % (AUTO) 2 % (0-1); EOSINOPHILS # (AUTO) 0.25 x10^3/uL (0-0.4); EOSINOPHILS % (AUTO) 3 % (1-7); LYMPHOCYTES # (AUTO) 2.72 x10^3/uL (1-3.4); LYMPHOCYTES % (AUTO) 34 % (22-44); MD SCAN; MONOCYTES # (AUTO) 0.64 x10^3/uL (0.2-0.8); MONOCYTES % (AUTO) 8 % (2-9); NEUTROPHILS # (AUTO) 4.23 x10^3/uL (1.8-6.8); NEUTROPHILS % (AUTO) 53 % (42-75)
[2019-03-28] MEDS ORDERED: IBUPROFEN 800 MG TABLET PO PRN
[2019-03-28] MEDS ORDERED: DIAZEPAM 10 MG TABLET PO PRN
[2019-03-28] MEDS ORDERED: ERGOCALCIFEROL 50,000 UNIT CAPSULE PO SCH
[2019-03-28] MEDS ORDERED: TRAZODONE 150MG TABLET PO PRN
[2019-03-28 00:20] VITALS: BP 134/79
[2019-03-28] MEDS: BREXPIPRAZOLE MC SCH ×3 (00:30→16:30)
[2019-03-28] MEDS ORDERED: LEVOTHYROXINE 100 MCG TABLET PO SCH (06:00)
[2019-03-28] MEDS: metFORMIN 850 MG TABLET PO SCH ×3 (08:20→16:00)
[2019-03-28 08:27] VITALS: BP 123/76
[2019-03-28] MEDS ORDERED: ATORVASTATIN 20 MG TABLET PO SCH (09:00)
[2019-03-28] MEDS ORDERED: LISINOPRIL 20 MG TABLET PO SCH (09:00)
[2019-03-28] MEDS ORDERED: BREXPIPRAZOLE 3 MG PO SCH (09:00)
[2019-03-28] MEDS ORDERED: RIVAROXABAN 20 MG TABLET PO SCH (09:00)
[2019-03-28] MEDS ORDERED: DIPHENHYDRAMINE 50 MG/ML, 1ML IVPush PRN (10:00)
[2019-03-28 13:38] VITALS: BP 126/84
[2019-03-28] MEDS ORDERED: DIVALPROEX 500 MG TAB.ER.24H PO SCH (21:00)
[2019-03-28] MEDS ORDERED: DULOXETINE 30 MG CAPSULE.DR PO SCH (21:00)
[2019-03-28] MEDS ORDERED: ARIPIPRAZOLE 10 MG TABLET PO SCH (21:00)
== END 2019-03-28 18:00 ==
LOC: ED 22:24 → INTOOBSV 23:13 → EDIP 23:13 → 4NW 23:57
PROVIDERS: ADMIT Emergency Medicine; ATTEND Emergency Medicine
DX: G93.41 Metabolic encephalopathy (principal); J96.00 Acute respiratory failure, unspecified whether with hypoxia or hypercapnia; N17.0 Acute kidney failure with tubular necrosis; E86.0 Dehydration; E03.9 Hypothyroidism, unspecified; E66.01 Morbid (severe) obesity due to excess calories; E74.39 Other disorders of intestinal carbohydrate absorption; F32.9 Major depressive disorder, single episode, unspecified; I10 Essential (primary) hypertension; I27.29 Other secondary pulmonary hypertension; R68.0 Hypothermia, not associated with low environmental temperature; N17.9 Acute kidney failure, unspecified; B96.1 Klebsiella pneumoniae [K. pneumoniae] as the cause of diseases classified elsewhere; Z79.899 Other long term (current) drug therapy
CPT/HCPCS: 36415; 80048; 85025; 99285; G0378